=== PATIENT | female | born 1960 ===

== ENCOUNTER 2022-12-08 08:46 | Outpatient (CLI) | payer BC ==
--- NOTE | 2022-12-15 10:04 | Mammography Report ---
BILATERAL DIGITAL SCREENING MAMMOGRAM 3D/2D: 12/08/2022 CLINICAL: Routine screening. No prior exams were available for comparison. Both breasts are almost entirely fatty (category a/<25% glandular tissue). No significant masses, calcifications, or other findings are seen in either breast. IMPRESSION: NEGATIVE There is no mammographic evidence of malignancy. A 1 year screening mammogram is recommended. Based on the Tyrer Cuzick model (a risk assessment model) the patients lifetime risk is 4.7% and her 10 year risk is 2.1%. According to the ACR, ACS, and NCCN guidelines, an annual breast MRI exam niya g with mammogram is recommended if the patients lifetime risk is 20% or greater. This exam was interpreted at Station ID: [id number]. NOTE: For mammograms, a report in lay terms will be sent to the patient. Approximately 15% of breast malignancies will not be visualized mammographically. In the management of a palpable breast mass, a negative mammogram must not discourage biopsy of a clinically suspicious lesion. Electronically Signed By: Andre Crump M.D. acr/lanette:12/15/2022 09:17:29 letter sent: No_Letter ACR BI-RADS Category 1: Negative 3341F PARENCHYMAL PATTERN: (F) - The breast(s) demonstrate(s) diffuse fatty replacement. BI-RADS CATEGORY: (1) - 1 Mammogram [id number] 1 year screening LATERALITY: (B)
== END 2022-12-08 08:47 | disposition home or self-care (01) ==
LOC: DI.S 08:46
DX: Z12.31 Encounter for screening mammogram for malignant neoplasm of breast (principal)

== ENCOUNTER 2023-11-09 08:00 | Outpatient (CLI) | payer MEDICARE, OTHER ==
--- NOTE | 2023-11-09 12:33 | XRAY Report ---
Lumbar Spine 2-3V HISTORY: 63 years of age, OSTEOARTHRITIS OF LUMBAR SPINE TECHNIQUE: Lumbar Spine 2-3V COMPARISON: None. FINDINGS/IMPRESSION: Mild levoscoliosis of the lumbar spine. Mild anterior compression deformity of L1, favoring chronic. Mild retrolisthesis of L2-L3, L3 on L4. Multilevel, moderate degenerative disc disease of the lumbar spine. Severe lower lumbar facet arthropathy. Reviewed by: Arielle Edouard MD on 11/09/2023 12:32 PM PDT Approved by: Arielle Edouard MD on 11/09/2023 12:32 PM PDT Station ID: [id number]
== END 2023-11-09 23:59 | disposition home or self-care (01) ==
LOC: DI.S 08:00
PROVIDERS: ATTEND Emergency Medicine
DX: M47.896 Other spondylosis, lumbar region (principal); M48.56XD Collapsed vertebra, not elsewhere classified, lumbar region, subsequent encounter for fracture with routine healing; M43.16 Spondylolisthesis, lumbar region; M51.36 Other intervertebral disc degeneration, lumbar region